=== PATIENT | male | born 1970 | race Caucasian/White ===

== ENCOUNTER → 2020-01-18 14:40 | Outpatient (CLI) | payer OTHER, SELFPAY ==
--- NOTE | ~2020-01-18 | MR_ITS ---
EXAMINATION: MR foot RT wo/w con, MR ankle RT wo con DATE: 01/18/2020 INDICATION: Plantar nerve lesion and right foot pain TECHNIQUE: 1. Magnetic resonance imaging (MRI) of the right ankle was performed without intravenous contrast. Se quences included axial, sagittal and coronal PD-weighted FSE and PD-weighted FS FSE. 2. MRI of the right fore/mid foot was performed without and with 20 mL Multihance intravenous contras t. Sequences included sagittal T1-weighted FSE, sagittal fluid sensitive FSE STIR, coronal PD-weighte d FS FSE, coronal T1-weighted FSE, axial PD-weighted FS FSE, and axial PD-weighted FSE. COMPARISON: None FINDINGS: Medial ankle ligaments: Loss of the normally well delineated striated pattern of the deltoid ligament with heterotopic ossifi cation along its tibial and fibular insertions consistent with sequela of chronic sprain. There is al so mild thickening of the superficial deltoid ligament consistent with scarring related to chronic sp rain with additional small amount of heterotopic ossification along the tibial portion the anterior p ortion of the ligament. The spring ligament complex is normal. Lateral ankle ligaments: The posterior inferior tibiofibular and posterior talofibular ligament are normal. There is thickenin g of the anterior tibiofibular and calcaneofibular ligaments consistent with scarring related to assembler tubing eric sprain. There is a small amount of heterotopic ossification at the fibular insertion of the calca neofibular ligament and replacement of a significant portion of the anterior talofibular ligament wit h heterotopic ossification consistent with chronic sprain. Tendons: Achilles tendon is normal. The peroneus longus tendon is normal. Mild tendinopathy and longitudinal s plit tear of the peroneus brevis brevis tendon. The tibialis anterior and extensor hallucis longus an d extensor digitorum longus tendons are normal. The tibialis posterior, flexor digitorum longus and f lexor hallucis longus tendons are normal. Plantar fascia: The plantar aponeurosis is normal. Bones: Hallux valgus with lateral subluxation of the right partite medial and lateral sesamoids. There is he terotopic ossification along the first metatarsophalangeal lateral collateral ligament which is likel y sequela of old trauma. Bunion with mild hypertrophic and cystic change the medial head of the first metatarsal. Moderate osteoarthritis at the first metatarsophalangeal joint. There is dorsal subluxation and increased dorsiflexion at the third metatarsophalangeal joint. There is thickening and increased signal of both the plantar plate and medial collateral ligament complex a t the third metatarsophalangeal joint without surrounding edema consistent with chronic at least part ial tears. Mild osteoarthritis at the tibiotalar joint with marginal osteophytes along the tibial plafond and ta lar dome. Focal cartilage loss with irregular cortical contour along the lateral margin of the talar dome consistent with likely chronic collapsed a now healed osteochondral lesion which measures 1.5 cm AP and 1.0 cm medial to lateral. Minimal to mild polyarticular osteoarthritis at the remaining joint s in the right foot. Otherwise normal marrow signal throughout the right foot and ankle. No fracture, reactive edema, eros ions or pathologic marrow replacing process. Other: There is thickening of the superior peroneal retinaculum with nonmasslike disorganized appearing soft tissue density at the cephalad aspect of the Kager's fat pad likely representing scarring related to chronic trauma. There is The Lisfranc ligament and remaining collateral ligament complexes at the me tatarsophalangeal and interphalangeal joints appear normal. The intrinsic musculature of the foot wally ears normal with no abnormal muscle signal or asymmetric fatty atrophy to suggest denervation change. Small joint ef
[2020-01-18 15:20] LABS: Estimated Glomerular Filt Rate > 60
== END ==
PROVIDERS: Visit Provider Podiatrist Foot & Ankle Surgery
DX: M13.871 Other specified arthritis, right ankle and foot (principal); M20.11 Hallux valgus (acquired), right foot
CPT/HCPCS: 73720; 73721; A9577

== ENCOUNTER 2021-08-29 00:42 | Day surgery (SDC) | payer OTHER, SELFPAY ==
[2021-08-15 13:34] VITALS: BMI 31.4
[2021-08-29 06:36] VITALS: BP 133/72; PULSE 80; RESP 20; TEMP 36.9; O2SAT 95
[2021-08-29] MEDS: LACTATED RINGERS 1,000 ML 150 ML IV CONT (06:52)
--- NOTE | 2021-08-29 07:22 | P.PNAN_ITS ---
Anes - Initial Pre Proc Eval Procedure: Operation Date: 08/29/21 07:30 Proposed Procedures p Screening Colonoscopy - Dano Olea MD Date/Time: 08/29/21 07:22 Surgeon: Dano Olea MD Pre Op Diagnosis: neoplasm screening Patient Data Age: 51 Gender: M Height: 1.8 m Weight: 101.3 kg Last Vital Signs Temp 98.4 F 08/29/21 06:36 Pulse 80 08/29/21 06:36 Resp 20 08/29/21 06:36 BP 133/72 08/29/21 06:36 Pulse Ox 20 L 08/29/21 06:36 O2 Del Method Room Air 08/29/21 06:36 Allergies Allergy/AdvReac Type Severity Reaction Status Date / Time No Known Allergies Allergy Verified 08/29/21 06:34 Home Medications Medication Instructions Recorded Confirmed Type cholecalciferol (vitamin D3) 50 50 mcg PO DAILY 07/03/21 08/29/21 History mcg (2,000 unit) capsule multivit with minerals-iron 18 1 tablet PO DAILY 08/15/21 08/29/21 History mg-folic ac 400 mcg-vit K 25 mcg tablet (Adults Multivitamin) Patient hx anesthesia problems: none Family hx anesthesia problems: none Results Review: All pre-operative results and documents have been reviewed as part of the pre-operative evaluation. [facility] Past Medical History Medical History (Updated 07/03/21 @ 13:34 by Dano Olea MD) Bloating Bowel perforation Colon cancer screening Diverticulitis Diverticulosis History of torn meniscus of left knee Incisional hernia Plantar plate injury Screening for prostate cancer Surgical History Surgical History History of colon resection Hx of hernia repair Family History Family History Mother Breast cancer Father Malignant neoplasm of prostate Non-Hodgkin lymphoma Social History Social History Smoking status: Current every day smoker Tobacco type: smokeless tobacco Smokeless tobacco user: snuff Alcohol intake: never Substance use: never Substance use type: does not use Living arrangements: with family Gender identity (if verbalized by the patient): Male Spiritual care concerns: No Anes - Eval Final PreProcedure Day of Procedure 08/29/21 07:22 Patient weight: obese Heart: regular rate and rhythm Lungs: clear to auscultation Airway: Mallampati scale class II Neurological: alert and oriented Last oral intake: >/= 8 hours ASA classification: II Emergent: no Anesthetic plan: proceed Anesthesia type and monitoring: general GIVS and standard monitoring Results Review: All pre-operative results and documents have been reviewed as part of the pre- operative evaluation. Informed Consent: The patient's anesthetic plan and its attendant risks and benefits were discussed with the patient/family/POA. Questions were solicited and answers provided to the satisfaction of the patient/family/POA.
--- NOTE | 2021-08-29 07:26 | PM.HPGS ---
History of Present Illness History of Present Illness Consent: Risks, benefits, and alternatives have been discussed and questions answered. Patient agrees to proceed with procedure. Chief complaint: neoplasm screening Narrative: Dima Mejia is a 51 year old male here for screening colonoscopy Review of Systems Constitutional: Constitutional: Denies headache(s) and Denies weakness Eyes: Eyes: Denies blurry vision ENT: Reports Normal hearing present, Denies headache(s) and Denies neck pain Cardiovascular: Cardiovascular: Denies chest pain and Denies dyspnea Respiratory: Respiratory: Denies dyspnea Gastrointestinal: Gastrointestinal: Reports no additional gastrointestinal complaints Genitourinary: Genitourinary: Denies dysuria Musculoskeletal: Musculoskeletal: Denies neck pain Integumentary/Breasts: Skin/Breast: Denies dry skin Neurologic: Reports Normal hearing present, Denies headache(s) and Denies weakness Psychiatric: Psychiatric: Denies anxiety Endocrine: Endocrine: Denies change in body appearance Hematologic/Lymphatic: Hematologic/Lymphatic: Denies easy bleeding Allergic/Immunologic: Allergic/Immunologic: Denies urticaria PMF Past Medical History Medical History (Updated 07/03/21 @ 13:34 by Dano Olea MD) Bloating Bowel perforation Colon cancer screening Diverticulitis Diverticulosis History of torn meniscus of left knee Incisional hernia Plantar plate injury Screening for prostate cancer Surgical History Surgical History History of colon resection Hx of hernia repair Family History Family History Mother Breast cancer Father Malignant neoplasm of prostate Non-Hodgkin lymphoma Social History Social History Smoking status: Current every day smoker Tobacco type: smokeless tobacco Smokeless tobacco user: snuff Alcohol intake: never Substance use: never Substance use type: does not use Living arrangements: with family Gender identity (if verbalized by the patient): Male Spiritual care concerns: No Meds Home Medications and Allergies Home Medications Medication Instructions Recorded Confirmed Type cholecalciferol (vitamin D3) 50 50 mcg PO DAILY 07/03/21 08/29/21 History mcg (2,000 unit) capsule multivit with minerals-iron 18 1 tablet PO DAILY 08/15/21 08/29/21 History mg-folic ac 400 mcg-vit K 25 mcg tablet (Adults Multivitamin) Allergies Allergy/AdvReac Type Severity Reaction Status Date / Time No Known Allergies Allergy Verified 08/29/21 06:34 Vital Signs Vital Signs - 24 hr 08/29/21 06:36 Temperature 98.4 F Pulse Rate 80 Respiratory Rate 20 Blood Pressure 133/72 Pulse Oximetry 20 L Oxygen Delivery Room Air Exam Const: General: comfortable and no acute distress HENMT: General nose exam: Normal nares present Eyes: General: appearance normal, both eyes and all related structures Neck: Neck: no JVD Resp: Auscultation: clear to auscultation bilaterally Cardio: Rate: regular rate Rhythm: regular rhythm GI: Inspection: non-distended GI Palp: Yes Soft to palpation Skin: General skin exam: normal color Neuro: General: gait normal Speech: normal speech Extrem: General: normal to inspection Psych: Mental Status: mental status grossly normal Assessment and Plan Assessment and plan (1) Colon cancer screening: Code(s): Z12.11 - Encounter for screening for malignant neoplasm of colon Status: Acute Assessment and Plan: colonoscopy
[2021-08-29 07:50] VITALS: BP 103/60; PULSE 70; RESP 22; O2SAT 95
[2021-08-29 08:00] VITALS: BP 122/76; PULSE 69; RESP 20; O2SAT 96
[2021-08-29 08:10] VITALS: BP 122/77; PULSE 66; RESP 22; O2SAT 99
== END 2021-08-29 08:21 | disposition home or self-care (01) ==
PROVIDERS: PCP Family Medicine; Visit Provider Internal Medicine Gastroenterology
PROC: 0DJD8ZZ Inspection of Lower Intestinal Tract, Via Natural or Artificial Opening Endoscopic (ICD-10-PCS; CPT 45378; principal; 2021-08-29 07:30)
DX: Z12.11 Encounter for screening for malignant neoplasm of colon (principal); K57.30 Diverticulosis of large intestine without perforation or abscess without bleeding; D12.4 Benign neoplasm of descending colon; K64.8 Other hemorrhoids; Z98.0 Intestinal bypass and anastomosis status; Z90.49 Acquired absence of other specified parts of digestive tract; F17.220 Nicotine dependence, chewing tobacco, uncomplicated; E66.9 Obesity, unspecified; Z68.31 Body mass index [BMI] 31.0-31.9, adult
CPT/HCPCS: 45385; 88305; J2704; J7120

== ENCOUNTER 2022-10-07 08:34 | Outpatient (CLI) | payer OTHER, SELFPAY ==
--- NOTE | 2022-10-07 11:15 | NEURO_ITS ---
Impression: # Complains of numbness of right foot. Status post right foot surgery. # Normal Nerve Conduction Study; No evidence of Tarsal Tunnel. # Normal needle/EMG. No evidence of neurogenic changes. # Clinical correlation recommended. Nerve Conduction Studies Anti Sensory Summary Table Stim Site NR Peak (ms) P-T Amp (?V) Site1 Site2 Delta-P (ms) Dist (cm) Diego (m/s) Left Sup Fibular Anti Sensory (Ant Lat Mall) 14 cm 3.3 15.9 14 cm Ant Lat Mall 3.3 16.0 48 Right Sup Fibular Anti Sensory (Ant Lat Mall) 14 cm 3.4 11.4 14 cm Ant Lat Mall 3.4 16.0 47 Left Sural Anti Sensory (Lat Mall) Calf 3.5 11.1 Calf Lat Mall 3.5 16.0 46 Right Sural Anti Sensory (Lat Mall) Calf 3.3 13.8 Calf Lat Mall 3.3 16.0 48 Motor Summary Table Stim Site NR Onset (ms) O-P Amp (mV) Site1 Site2 Delta-0 (ms) Dist (cm) Diego (m/s) Left Lateral Plantar Motor (ADM) Med Mall 4.3 2.2 Right Lateral Plantar Motor (ADM) Med Mall 4.5 1.9 Left Peroneal Motor (Vastus Med) Ankle 4.1 4.9 Popit Ankle 8.7 43.0 49 Popit 12.8 3.3 Right Peroneal Motor (Vastus Med) Ankle 4.0 2.8 Popit Ankle 7.9 40.0 51 Popit 11.9 3.9 Left Tibial Motor (Abd Emndieta Brev) Ankle 4.2 6.2 Knee Ankle 8.8 41.0 47 Knee 13.0 3.4 Right Tibial Motor (Abd Mendieta Brev) Ankle 4.3 6.8 Knee Ankle 8.7 43.0 49 Knee 13.0 4.6 F Wave Studies NR F-Lat (ms) L-R F-Lat (ms) Left Peroneal (Mrkrs) (EDB) 50.47 0.75 Right Peroneal (Mrkrs) (EDB) 51.21 0.75 Left Tibial (Mrkrs) (Abd Hallucis) 51.77 1.14 Right Tibial (Mrkrs) (Abd Hallucis) 52.91 1.14 EMG Side Muscle Nerve Root Ins Act Fibs Amp Dur Recrt Comment Right AntTibialis Dp Br Fibular L4-5 Nml Nml Nml Nml Nml Right Gastroc Tibial S1-2 Nml Nml Nml Nml Nml Right Fibularis Long Sup Br Fibular L5-S1 Nml Nml Nml Nml Nml Right Flex Dig Long Tibial L5-S2 Nml Nml Nml Nml Nml Right Ext Dig Brev Dp Br Fibular L5, S1 Nml Nml Nml Nml Nml Left AntTibialis Dp Br Fibular L4-5 Nml Nml Nml Nml Nml Left Gastroc Tibial S1-2 Nml Nml Nml Nml Nml Left Fibularis Long Sup Br Fibular L5-S1 Nml Nml Nml Nml Nml Left Flex Dig Long Tibial L5-S2 Nml Nml Nml Nml Nml Left Ext Dig Brev Dp Br Fibular L5, S1 Nml Nml Nml Nml Nml Right QuadratusFem QuadFemoris L4-5, S1 Nml Nml Nml Nml Nml Left QuadratusFem QuadFemoris L4-5, S1 Nml Nml Nml Nml Nml MTDD
== END 2022-10-07 08:35 | disposition home or self-care (01) ==
PROVIDERS: PCP Family Medicine
DX: G60.9 Hereditary and idiopathic neuropathy, unspecified (principal)
CPT/HCPCS: 95886; 95911

== ENCOUNTER 2022-11-18 20:38 | Inpatient (IN) | payer OTHER, SELFPAY ==
--- NOTE | ~2022-11-18 | XR_ITS ---
EXAMINATION: XR sm bowel follow through DATE: 11/19/2022 08:43 INDICATION: Small bowel obstruction. TECHNIQUE: Oral contrast was administered, and a time course of radiographs of the abdomen was obtain ed. Fluoroscopy of the small bowel was not performed. Fluoroscopy exposure time was 0 minutes. The to komal number of images was 6. COMPARISON: CT abdomen and pelvis 11/18/2022 FINDINGS: The nasogastric tube tip is in the stomach. There are multiple dilated loops of small bowel. Transit time from the stomach to proximal colon was approximately 45 minutes. IMPRESSION: 1. Dilated small bowel with normal transit time to the colon, likely adynamic ileus. Reviewed, dictated and finalized at location A. IMPRESSION: 1. Dilated small bowel with normal transit time to the colon, likely adynamic i leus.
--- NOTE | ~2022-11-18 | XR_ITS ---
EXAMINATION: XR_KUBGTUBINS_CR DATE: 11/19/2022 00:08 INDICATION: Nasogastric tube placement. TECHNIQUE: An upright view of the abdomen was obtained. COMPARISON: CT abdomen and pelvis 11/18/2022 FINDINGS: There are no dilated loops of bowel. The nasogastric tube tip is in the stomach. IMPRESSION: 1. Nasogastric tube tip in the stomach. Reviewed, dictated and finalized at location A.
--- NOTE | ~2022-11-18 | CT_ITS ---
EXAMINATION: CT abdomen pelvis w con DATE: 11/18/2022 21:36 INDICATION: Abdominal pain history of diverticulitis TECHNIQUE: Computed tomography (CT) of the abdomen and pelvis was performed with 100 mL Omnipaque-350 intravenous contrast. Automated exposure control and iterative reconstruction technique were employe d. The dose-length product was 1484.54 mGy-cm. COMPARISON: 11/09/2016. FINDINGS: Lower thorax: Unremarkable Liver: Subcentimeter right lobe hypodensity, too small to characterize, most likely a cyst or hemangi ever. Biliary/Gallbladder: Gallbladder is normal. No bile duct dilation. Pancreas: No mass or duct dilation. Spleen: Normal. Adrenals:No mass. Kidneys: No mass, stone, or hydronephrosis. GI tract: Mild distal esophageal and gastric wall edema. Distended stomach. Multiple loops of dilated small bowel in the mid abdomen, with interloop fluid. No wall thickening. Uniform bowel wall enhance ment. No transition point. Uncomplicated appearing distal sigmoid anastomosis. 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 Normal appendix. Diverticulosi s without diverticulitis. Mesentery/Peritoneum: No ascites, mass, or free air. Retroperitoneum: No mass. Pelvis: Moderate urinary bladder wall thickening. Prostatomegaly. Small volume free pelvic fluid. Soft Tissues: Small, fat-containing, mildly inflamed supraumbilical ventral hernias. Bones: No acute osseous finding. IMPRESSION: Esophagitis/gastritis. Gastric distention. Multiple dilated mid small bowel loops, may represent ileus, early/partial obstruction, or ischemia. No CT evidence of diverticulitis. 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 Cystitis versus bladder wall thickening from outlet compromise Reviewed, dictated and finalized at location K. IMPRESSION: Esophagitis/gastritis. Gastric distention. Multiple dilated mid small bowel loops, may represent ileus, early/partial obst ruction, or ischemia. No CT evidence of diverticulitis. 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 Cystitis versus bladder wall thickening from outlet compromise
[2022-11-18 20:40] VITALS: BP 151/89; PULSE 69; RESP 20; TEMP 35.8; O2SAT 98
[2022-11-18] MEDS: SODIUM CHLORIDE 0.9% IV 1,000 ML 999 ML IV CONT (21:07)
[2022-11-18] MEDS: ONDANSETRON INJ 4 MG/2 ML VIAL IV PUSH (21:07)
[2022-11-18 21:08] LABS: Basophils Absolute Auto 0.1 K/mm3 (0.0-0.1); Basophils Percent Auto 0.5 % (0.2-1.2); Eosinophils Absolute Auto 0.2 K/mm3 (0-0.3); Eosinophils Percent Auto 1.2 % (0-4.4); Hematocrit 48.8 % (42.0-52.0); Hemoglobin 17.1 g/dL (14.0-18.0); Immature Granulocyte Absolute 0.04 K/mm3 (0.00-0.031); Immature Granulocyte Percent A 0.3 % (0-0.5); Lymphocytes Absolute Auto 1.63 K/mm3 (0.9-3.2); Lymphocytes Percent Auto 12.9 % (18.3-44.2); Mean Corpuscular Hemoglobin 32.4 pg (26-34); Mean Corpuscular Volume 92.4 fl (80-100); Mean Platelet Volume 10.1 fl (7.4-10.4); Monocytes Percent Auto 8.1 % (2.6-8.5); Neutrophils Absolute Auto 9.7 K/mm3 (1.3-6.7); Platelet Count Result 272 k/mm3 (150-375); Red Blood Count 5.28 M/mm3 (4.6-6.20); Red Cell Distribution Width 12.7 % (11.5-14.5); White Blood Count 12.6 K/mm3 (4.5-10.0)
--- NOTE | 2022-11-18 21:16 | ED.GENADULT ---
HPI - General Adult General Chief complaint: Abdominal Pain Stated complaint: I have an obstructed colon Time Seen by Provider: 11/18/22 20:49 History of Present Illness HPI narrative: Patient is a 52-year-old gentleman who presents the emergency department with chief complaint of abdominal pain. Patient reports that he has prior history of diverticulitis with a secondary bowel obstruction and perforation. Patient reports he had exploratory laparotomy before and repair of perforation. Patient states that started having pain today reports in the left side of his abdomen reports it feels similar to whenever he had diverticulitis before in the past. The patient denies fever reports that he has had some loose stool and has had some blood in his stool Related Data Home Medications Medication Instructions Recorded Confirmed cholecalciferol (vitamin D3) 50 50 mcg PO DAILY 07/03/21 09/21/22 mcg (2,000 unit) capsule multivit with minerals-iron 18 1 tablet PO DAILY 08/15/21 09/21/22 mg-folic ac 400 mcg-vit K 25 mcg tablet (Adults Multivitamin) Allergies Allergy/AdvReac Type Severity Reaction Status Date / Time No Known Allergies Allergy Verified 11/18/22 20:39 Review of Systems Review of Systems: A 10 system review of systems was completed on the patient and is negative except for what is stated in the HPI. Nursing and ancillary documentation was reviewed. [facility] Past Medical History Medical History Adult BMI 33.0-33.9 kg/sq m Bloating Bowel perforation Colon cancer screening Diverticulitis Diverticulosis Elevated lipids History of torn meniscus of left knee Incisional hernia Numbness of right foot Plantar plate injury Screening for prostate cancer Surgical History Surgical History History of colon resection Hx of hernia repair Family History Family History Mother Breast cancer Father Malignant neoplasm of prostate Non-Hodgkin lymphoma Social History Social History Smoking status: Never smoker (he uses chew. canned) Tobacco type: smokeless tobacco Smokeless tobacco user: snuff Second hand tobacco smoke exposure: Yes Alcohol intake: never Substance use: never Substance use type: does not use Lack of Transportation: No Lack of Food: Never True Current Housing: I Have Housing Concerned About Future Housing: No Difficulty Paying Gas/Electric Bills: No Difficulty Paying for Meds: No Currently Unemployed: No Education: Bachelor's Degree Difficulty w/ Childcare or Family Care: No Living arrangements: with family Occupation/Education: occupation Gender identity (if verbalized by the patient): Male Spiritual care concerns: No Exam Narrative: GENERAL: Well-appearing, well-nourished, and in no acute distress. HEAD: Normocephalic, atraumatic. EYES: PERRLA and EOMI. ENT: Nares clear, no rhinorrhea or epistaxis. Mucous membranes moist. NECK: Supple. CHEST: Clear to auscultation. No respiratory distress. HEART: Regular rate and rhythm. No murmur heard. Normal peripheral pulses. ABDOMEN: Soft, tenderness to palpation of the left side of the abdomen, nondistended, normal active bowel sounds. EXTREMITIES: Normal range of motion. No edema. SKIN: Warm, dry, no rash. NEURO: No focal deficits. Alert and oriented x3. PSYCH: Normal mood and affect. Course Vital Signs Vital signs: Vital Signs Temperature 35.8 C L 11/18/22 20:40 Pulse Rate 69 11/18/22 20:40 Respiratory Rate 20 11/18/22 20:40 Blood Pressure 151/89 H 11/18/22 20:40 Pulse Oximetry 98 11/18/22 20:40 Oxygen Delivery Room Air 11/18/22 20:40 Temperature 35.8 C L 11/18/22 20:40 Pulse Rate 56 L 11/18/22 22:06 Respir
[2022-11-18 21:18] LABS: Alanine Aminotransferase 29 U/L (6-50); Albumin Level 4.5 g/dL (3.5-5.1); Alkaline Phosphatase 70 U/L (38-126); Anion Gap 6 mmol/L (8-16); Aspartate Amino Transferase 30 U/L (17-59); Bilirubin,Total 0.9 mg/dL (0.2-1.3); Blood Urea Nitrogen 18 mg/dL (9-20); Calcium 9.9 mg/dL (8.4-10.2); Carbon Dioxide 27 mmol/L (22-30); Chloride 101 mmol/L (98-107); Estimated CRCL calculation 92 ml/min; Estimated Glomerular Filt Rate > 60; Glucose 104 mg/dL (65-110); Lipase 38 U/L (23-300); Potassium 3.9 mmol/L (3.4-5.0); Sodium 134 mmol/L (137-145)
[2022-11-18 21:45] LABS: Appearance Urine Clear (Clear); Bacteria Urine None Seen /hpf; Bilirubin Urine Negative (Negative); Blood Urine Negative (Negative); Color Urine Yellow (Yellow); Glucose Urine UA Negative (Negative); Ketones Urine Trace mg/dL (Negative); Leukocyte Esterase Ur Negative LEU/UL (Negative); Nitrate Urine Negative (Negative); Non Pathogenic Casts 0-2; Protein Urine 1+ mg/dL (Negative); RBC Urine 0-2 /hpf (0-2); Specific Grav Ur 1.027 (1.001-1.035); Squamous Epithelial Cell Urine None seen /hpf (Few); WBC Urine 0-5 /hpf
[2022-11-18 21:49] LABS: Add Urine Microscopic? YES
[2022-11-18] MEDS: MORPHINE SULFATE (*CRX) 4 MG/ML INJ IV PUSH (22:04)
[2022-11-18 22:06] VITALS: BP 127/70; PULSE 56; RESP 18; O2SAT 96
[2022-11-18 22:47] LABS: Lactic Acid Reflex 1.3 mmol/L (0.7-2.0)
[2022-11-18] MEDS: PANTOPRAZOLE SODIUM IV 40 MG VIAL IV PUSH (23:06)
[2022-11-18] MEDS: PIPERACILLN/TAZ 3.375GM/NS50ML 3.375 GM/50 ML BAG IVPB (23:06)
[2022-11-19 00:40] VITALS: BP 136/88; PULSE 57; RESP 14; O2SAT 96
[2022-11-19 01:02] VITALS: BP 139/73; PULSE 56; RESP 18; TEMP 36.5; O2SAT 95; BMI 33.3
[2022-11-19 01:07] VITALS: BP 139/73; PULSE 56; RESP 18; TEMP 36.5; O2SAT 95; BMI 33.3
--- NOTE | 2022-11-19 01:10 | ADMGEN ---
This patient, Dima Mejia, was admitted to Medical Room 341-01. Patient/family oriented to hospital policies and general routines including ID bracelet, bed and alarms, visiting hours, pain management, procedures, bathroom and other care routines, personal items, smoking policy, room service/diet, and visiting hours. Information on how to activate the Rapid Response Team has been discussed. Patient/Family are encouraged to report perceived risks to care and to ask questions if they do not understand what they are told or what they should do.
[2022-11-19] MEDS: SODIUM CHLORIDE 0.9% IV 1,000 ML 125 ML IV CONT ×2 (01:25→11:19)
--- NOTE | 2022-11-19 03:29 | PM.IMHP ---
H&P: HPI History of Present Illness Date/Time: 11/19/22 03:29 Chief Complaint: Abdominal pain, obstructed colon Narrative: This is a 52-year-old man who presents to the ED with complaints of abdominal pain. He says it feels just like the previous small-bowel obstruction that he has had. His prior history includes perforation secondary to diverticulitis, small-bowel obstruction with repair, hernia with repair, small bowel obstruction, as well as exploratory laparotomy before and after repair of perforation. The patient told me that he has been dealing with abdominal issues for over the past 10 years. Over the past 2 months since he switched to a Keto diet, he does not have recurring issues of abdominal pain. He says that at least once a week he gets abdominal pain for which he does not eat and takes MiraLax and waits for the pain to subside. He seems to be describing episodes of small-bowel obstructions that occur. Unfortunately since around midnight of Wednesday, he developed an acute abdominal pain that has not resolved with not eating and MiraLax. The last bowel movement he had was yesterday at noon. First there was some normal C to the bowel movement but then he passed some liquidy diarrhea and deep red blood. Secondly his abdominal pain has persisted and has thus brought him to the ER. Since the NG tube was placed, since he received fluid, antiemetics, and pain medication, his pain has already begun to subside and his abdominal distention is decreasing. His vital signs were normal. Temperature 96.5? heart rate 56 respiratory rate 18 satting 96% on room air with a blood pressure of 127/70. The patient had an elevated WBC of 12.6 in the ER with a left shift. The patient does not have an elevated lactic acid. The lactic acid is 1.3. LFTs are normal. Lipase is normal. CT scan from the ER shows: Esophagitis/gastritis. Gastric distention. Multiple dilated mid small bowel loops, may represent ileus, early/partial obstruction, or ischemia. No CT evidence of diverticulitis. 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 Cystitis versus bladder wall thickening from outlet compromise No free air/ free fluid in peritoneum. The ED attending consulted the general surgeon on-call who is Dr. Locke. He recommended no Lovenox and starting SCDs. He also recommended an NPO diet after midnight and preparing the patient for surgery. He wanted the patient on IV fluids for which 125 mL/hour of normal saline was started. IV pain medications so morphine was started. The patient got 1 L NS bolus. P.r.n. IV Zofran and p.r.n. Protonix was given x1. The patient was started on Zosyn 3.375 g q.6 hours per the surgeon. Per the ER attending the patient is passing gas and has positive bowel sounds. Review of Systems Review of Systems: Negative otherwise specified in [facility] Past Medical History Medical History Adult BMI 33.0-33.9 kg/sq m Bloating Bowel perforation Colon cancer screening Diverticulitis Diverticulosis Elevated lipids History of torn meniscus of left knee Incisional hernia Numbness of right foot Plantar plate injury Screening for prostate cancer Surgical History Surgical History History of colon resection Hx of hernia repair Family History Family History Mother Breast cancer Father Malignant neoplasm of prostate Non-Hodgkin lymphoma Social History Social History Smoking status: Never smoker Tobacco type: smokeless tobacco Smokeless tobacco user: snuff Second hand tobacco smoke exposure: No Alcohol intake: never Substance use: never Substance use type: does not use Lack of Transportation: No Lack
--- NOTE | 2022-11-19 03:48 | ECG_ITS ---
Measurements Intervals [place] Rate: 51 P: 35 MD: 176 QRS: 67 QRSD: 117 T: 10 QT: 444 QTc: 412 Interpretive Statements SINUS BRADYCARDIA WITH SINUS ARRHYTHMIA OTHERWISE NORMAL ELECTROCARDIOGRAM NO PREVIOUS ECG AVAILABLE FOR COMPARISON Electronically Signed On 11-19-2022 13:14:55 CDT by Dima Marcial M.D.
[2022-11-19] MEDS: MORPHINE SULFATE (*CRX) 4 MG/ML INJ IV PUSH (04:04)
[2022-11-19 04:42] VITALS: BP 129/66; PULSE 52; RESP 16; TEMP 36.4; O2SAT 94
[2022-11-19 04:48] VITALS: O2SAT 94
[2022-11-19] MEDS: PIPERACILLN/TAZ 3.375GM/NS50ML 3.375 GM/50 ML BAG IVPB ×2 (05:40→11:20)
[2022-11-19 06:02] LABS: Basophils Percent Auto 0.4 % (0.2-1.2); Eosinophils Absolute Auto 0.3 K/mm3 (0-0.3); Eosinophils Percent Auto 2.4 % (0-4.4); Hematocrit 44.8 % (42.0-52.0); Hemoglobin 15.3 g/dL (14.0-18.0); Immature Granulocyte Absolute 0.04 K/mm3 (0.00-0.031); Immature Granulocyte Percent A 0.4 % (0-0.5); Lymphocytes Absolute Auto 1.46 K/mm3 (0.9-3.2); Lymphocytes Percent Auto 14.1 % (18.3-44.2); Mean Corpuscular HGB Conc 34.2 g/dl (32-36); Mean Corpuscular Hemoglobin 32.3 pg (26-34); Mean Corpuscular Volume 94.5 fl (80-100); Mean Platelet Volume 10.3 fl (7.4-10.4); Monocytes Percent Auto 9.4 % (2.6-8.5); Neutrophils Absolute Auto 7.6 K/mm3 (1.3-6.7); Neutrophils Percent Auto 73.3 % (45.5-73.1); Platelet Count Result 232 k/mm3 (150-375); Red Blood Count 4.74 M/mm3 (4.6-6.20); Red Cell Distribution Width 12.6 % (11.5-14.5); White Blood Count 10.3 K/mm3 (4.5-10.0)
[2022-11-19 06:12] LABS: Alanine Aminotransferase 24 U/L (6-50); Albumin Level 3.7 g/dL (3.5-5.1); Alkaline Phosphatase 59 U/L (38-126); Anion Gap 3 mmol/L (8-16); Aspartate Amino Transferase 25 U/L (17-59); Bilirubin,Total 0.8 mg/dL (0.2-1.3); Blood Urea Nitrogen 16 mg/dL (9-20); Calcium 8.9 mg/dL (8.4-10.2); Carbon Dioxide 30 mmol/L (22-30); Chloride 101 mmol/L (98-107); Estimated CRCL calculation 93 ml/min; Estimated Glomerular Filt Rate > 60; Glucose 100 mg/dL (65-110); Potassium 4.1 mmol/L (3.4-5.0); Sodium 134 mmol/L (137-145)
[2022-11-19] MEDS: PANTOPRAZOLE SODIUM IV 40 MG VIAL IV PUSH (09:01)
--- NOTE | 2022-11-19 12:43 | WPDCN ---
Assessment and Plan Assessment and plan (1) Abdominal pain: Code(s): R10.9 - Unspecified abdominal pain Status: Acute Assessment and Plan: Patient's abdominal pain has resolved. White blood count has normalized. Small-bowel follow-through series performed this morning shows normal transit of contrast to the colon [id number]. Patient started having multiple liquid bowel movements now. He likely had an adynamic small bowel ileus. However cannot exclude that he did have a quickly re resolving capsule small-bowel obstruction from adhesions from his previous surgeries. Clinically his abdomen is now benign and so we will go ahead remove his nasogastric tube and start him on clear liquids and advanced to regular diet as tolerated. Stop the IV antibiotics. He can likely go home later today or tomorrow depending on how quickly advanced on his diet. At time of discharge no need to follow up with General surgery in the office after his admission. HPI Data of Consult Date/Time: 11/19/22 12:43 Requesting Physician: Cal Burgos MD Primary Care Provider: Reji Lawrence MD Consult Narrative Reason for consult: Abdominal pain and possible small-bowel obstruction Narrative: Dima Mejia is a 52 year old male who was admitted to the hospital yesterday with complaints of increasing abdominal pain and nausea. No emesis. He has had a prior history of perforated sigmoid diverticulitis for which he underwent resection. He then ended up having incisional hernias which were repaired but then had recurrence this would and ultimately had repair by Dr. Vishal Reyes at [facility] several years ago. Since that time he has only had 1 admission to the hospital for her small-bowel obstruction which resolved non operatively. Yesterday he started having some abdominal pain as well as abdominal distention and nausea and felt that he had the same symptoms as his previous small-bowel obstruction. When he was evaluated the emergency room [place] [address]. He was hemodynamically stable. CT scan abdomen pelvis showed multiple loops of dilated small bowel with air-fluid levels but no obvious transition point. Differential included adynamic ileus versus mechanical small bowel obstruction. He was admitted to the hospital for IV fluid hydration, nasogastric tube decompression, and exams. Overnight as the stomach was decompressed he felt much better. His white blood count decreased down to 10,000 this morning which was normal. He had a water-soluble small-bowel follow-through series this morning through the nasogastric tube and contrast reached the colon in 45minutes and he started having multiple liquid bowel movements. Review of Systems Review of Systems: The remainder of the review of systems to include constitutional, HEENT, cardiovascular, respiratory, GI, , integumentary, musculoskeletal, endocrine, immunologic, hematologic, psychiatric, and neurologic are all negative except for which is mentioned above in the HPI. [facility] Past Medical History Medical History Adult BMI 33.0-33.9 kg/sq m Bloating Bowel perforation Colon cancer screening Diverticulitis Diverticulosis Elevated lipids History of torn meniscus of left knee Incisional hernia Numbness of right foot Plantar plate injury Screening for prostate cancer Surgical History Surgical History History of colon resection Hx of hernia repair Family History Family History Mother Breast cancer Father Malignant neoplasm of prostate Non-Hodgkin lymphoma Social History Social History Smoking status: Never smoker Tobacco type: smokeless tobacco Smokeless tobacco user: snuff Second hand tobacco smoke exposure: No Alcoh
[2022-11-19 14:29] VITALS: BP 130/75; PULSE 59; RESP 18; TEMP 36.3; O2SAT 98
--- NOTE | 2022-11-19 18:24 | PM.DS ---
DS: Admitting Diagnosis Discharge Date 11/19/22 Admitting Diagnosis Abdominal pain DS: Discharge Diagnosis Discharge Diagnosis (1) Partial small bowel obstruction: Code(s): K56.600 - Partial intestinal obstruction, unspecified as to cause Status: Acute (2) Dehydration: Code(s): E86.0 - Dehydration Status: Acute DS: Summary Hospital Course Reason for hospitalization: 52yo male with hx of colonic perforation and bowel resection here for abdominal pain. Please see H&P for details. Hospital Course: Patient presented to the emergency room with complaints of abdominal pain. Vital signs were stable. White count was 12K but hemoglobin and platelet count normal. There was complaint of diarrhea with rectal bleeding. Colonoscopy in 2021 result noted. Sodium slightly low but otherwise CMP normal. EKG sinus bradycardia o/w normal. UA clear. CT Abd/pelvis showing mild distal esophageal and gastric wall edema. He had gastric distention and mutiple dilated SB loops consistent with ileus or pSBO. He also had incidental findings of BPH and bladder wall thickening. NGT was placed. He had clinical improvement with bowel rest. Small bowel series showing dilated small bowel with normal transit time to the colon. He began to have multiple BMs. No rectal bleeding since admission. He had improvement in his symptoms. NGT removed and diet started. He was advanced and tolerated this well. He did well and was able to be discharged home on 11/19/22. Status at Discharge Cognitive/behavioral status at discharge: stable Time Spent with Patient Time attestation: Total time spent providing and/or coordinating discharge services: 35 minutes Time spent: Greater than 30 minutes Exam Narrative: AF 97.3 130/75 59 18 98% ra Gen - NARD Chest - CTA bilaterally, nml RR CV - RRR S1/S2 Abd - Soft, minimal tenderness, +BS Ext - No pedal edema Neuro - Alert and oriented. Nonfocal exam. Psych - Nml mood and affect Skin - Warm and dry DS: Data Data Completed and Pending Labs on day of discharge: Labs from last 24 hours 11/19/22 11/18/22 11/18/22 05:21 22:31 21:06 WBC 10.3 H RBC 4.74 Hgb 15.3 Hct 44.8 MCV 94.5 MCH 32.3 MCHC 34.2 RDW 12.6 Plt Count 232 MPV 10.3 Immature Gran % (Auto) 0.4 Neut % (Auto) 73.3 H Lymph % (Auto) 14.1 L [place] % (Auto) 9.4 H Eos % (Auto) 2.4 Baso % (Auto) 0.4 Lymph # (Auto) 1.46 [place] # (Auto) 1.0 H Eos # (Auto) 0.3 Baso # (Auto) 0.0 Abs Immat Gran (auto) 0.04 H Absolute Neuts (auto) 7.6 H Absolute Nucleated RBC 0.0 Nucleated RBC % 0.0 Sodium 134 L Potassium 4.1 Chloride 101 Carbon Dioxide 30 Anion Gap 3 L BUN 16 Creatinine 1.00 Estim Creat Clear Calc 93 Estimated GFR > 60 Glucose 100 Lactic Acid 1.3 Calcium 8.9 Total Bilirubin 0.8 AST 25 ALT 24 Alkaline Phosphatase 59 Total Protein 6.0 L Albumin 3.7 Lipase Urine Color Yellow Urine Appearance Clear Urine pH 7.0 Ur Specific [place] 1.027 Urine Protein 1+ H Urine Glucose (UA) Negative Urine Ketones Trace H Ur Blood (Man) Negative Urine Nitrate Negative Urine Bilirubin Negative Urine Urobilinogen 1.0 Leukocyte Esterase Rfl Negative Urine RBC 0-2 Urine WBC 0-5 Ur Squamous Epith Cells None seen Urine Bacteria None seen Urine Casts 0-2 11/18/22 11/18/22 21:01 20:59 WBC 12.6 H RBC 5.28 Hgb 17.1 Hct 48.8 MCV 92.4 MCH 32.4 MCHC 35.0 RDW 12.7 Plt Count 272 MPV 10.1 Immature Gran % (Auto) 0.3 Neut % (Auto) 77.0 H Lymph % (Auto) 12.9 L [place] % (Auto) 8.1 Eos % (Auto) 1.2 Baso % (Auto) 0.5 Lymph # (Auto) 1.63 [place] # (Auto) 1.0 H Eos # (Auto) 0.2 Baso # (Auto) 0.1 Abs Immat Gran (auto) 0.04 H Absolute Neuts (auto) 9.7 H Absolute Nucleated RBC 0.0 Nucleated RBC % 0.0 So
== END 2022-11-19 19:02 | disposition home or self-care (01) | DRG 389 ==
LOC: ANHED 22:31 → ANH3MED 23:58
PROVIDERS: Admitting Provider Internal Medicine; Emergency Provider Emergency Medicine; PCP Family Medicine; Visit Provider Internal Medicine
DX: K56.600 Partial intestinal obstruction, unspecified as to cause (principal); E87.1 Hypo-osmolality and hyponatremia; E86.0 Dehydration; N40.0 Benign prostatic hyperplasia without lower urinary tract symptoms; F17.220 Nicotine dependence, chewing tobacco, uncomplicated
CPT/HCPCS: 36415; 74177; 74250; 80053; 81001; 83605; 83690; 85025; 93005; 96361; 96365; 96375; 99285; C9113; G0378; J2270; J2405; J2543; J7030; Q9967